=== PATIENT | female | born 1960 | race Caucasian/White ===

== ENCOUNTER 2019-10-25 13:58 | Emergency (ER) | payer BC, SELFPAY ==
[2019-10-25 14:02] VITALS: BP 131/68; PULSE 83; RESP 18; TEMP 36.9; O2SAT 98
[2019-10-25 14:35] LABS: Basophils Percent Auto 0.5 % (0.2-1.2); Eosinophils Absolute Auto 0.1 K/mm3 (0-0.3); Eosinophils Percent Auto 0.8 % (0-4.4); Hematocrit 41.5 % (37.0-47.0); Hemoglobin 14.3 g/dL (12.0-15.0); Immature Granulocyte Absolute 0.03 K/mm3 (0.00-0.031); Immature Granulocyte Percent A 0.3 % (0-0.5); Lymphocytes Absolute Auto 1.38 K/mm3 (0.9-3.2); Lymphocytes Percent Auto 15.7 % (18.3-44.2); Mean Corpuscular HGB Conc 34.5 g/dl (32-36); Mean Corpuscular Hemoglobin 30.6 pg (26-34); Mean Corpuscular Volume 88.7 fl (80-100); Mean Platelet Volume 10.3 fl (7.4-10.4); Monocytes Absolute Auto 0.5 K/mm3 (0.1-0.6); Monocytes Percent Auto 5.9 % (2.6-8.5); Neutrophils Absolute Auto 6.8 K/mm3 (1.3-6.7); Neutrophils Percent Auto 76.8 % (45.5-73.1); Platelet Count Result 143 k/mm3 (150-375); Red Blood Count 4.68 M/mm3 (4.2-5.4); Red Cell Distribution Width 12.2 % (11.5-14.5); White Blood Count 8.8 K/mm3 (4.5-10.0)
[2019-10-25 14:48] LABS: Alanine Aminotransferase 21 U/L (4-35); Albumin Level 4.5 g/dL (3.5-5.1); Alkaline Phosphatase 84 U/L (38-126); Aspartate Amino Transferase 34 U/L (14-36); Bilirubin,Total 0.4 mg/dL (0.2-1.3); Blood Urea Nitrogen 6 mg/dL (7-17); CRP < 0.5 mg/dL (<1.0); Calcium 9.3 mg/dL (8.4-10.2); Carbon Dioxide 26 mmol/L (22-30); Chloride 101 mmol/L (98-107); Estimated CRCL calculation 74 ml/min; Estimated Glomerular Filt Rate > 60; Glucose 131 mg/dL (65-105); Potassium 3.7 mmol/L (3.4-5.0); Sodium 137 mmol/L (137-145)
--- NOTE | 2019-10-25 15:29 | ED.GENADULT ---
HPI - General Adult General Chief complaint: Eye Problems <KAYLIN Anne Last Filed: 10/25/19 17:27> Stated complaint: Sent from urgent care/right eye pain/martin <Lashae Godfrey PA-C - Last Filed: 10/25/19 17:27> Time Seen by Provider: 10/25/19 15:19 <KAYLIN Anne Last Filed: 10/25/19 17:27> Source: patient <KAYLIN Anne Last Filed: 10/25/19 17:27> Mode of arrival: ambulatory <KAYLIN Anne Last Filed: 10/25/19 17:27> Limitations: no limitations <KAYLIN Anne Last Filed: 10/25/19 17:27> History of Present Illness HPI narrative: Sent from urgent care for further evaluation of right eye pain. Pt states that it started approximately 6 days ago, with her eyeball aching on Sat. She has slightly blurred vision in right eye, the sclera is red, no itching or feeling of foreign body. She did have some right zoroastrianism pain earlier in the week, none now. Denies trauma. <KAYLIN Anne Last Filed: 10/25/19 17:27> Onset (ago): day(s) <KAYLIN Anne Last Filed: 10/25/19 17:27> Location: eyes (right) <KAYLIN Anne Last Filed: 10/25/19 17:27> Radiation: non-radiation <KAYLIN Anne Last Filed: 10/25/19 17:27> Severity: mild <KAYLIN Anne Last Filed: 10/25/19 17:27> Quality: aching (right eye) <KAYLIN Anne Last Filed: 10/25/19 17:27> Pain Consistency: constant <KAYLIN Anne Last Filed: 10/25/19 17:27> Exacerbating factors: none <Lashae Godfrey PA-C - Last Filed: 10/25/19 17:27> Associated symptoms: denies other symptoms <Lashae Godfrey PA-C - Last Filed: 10/25/19 17:27> Treatments prior to arrival: none <Lashae Godfrey PA-C - Last Filed: 10/25/19 17:27> Related Data Home medications: Home Medications Medication Instructions Recorded Confirmed alendronate 70 mg tablet tablet PO 06/25/19 apixaban 5 mg tablet 5 mg PO BID tablet 06/25/19 diltiazem HCl 180 mg mg PO 06/25/19 capsule,extended release 24 hr melatonin 10 mg tablet PO 06/25/19 rosuvastatin 20 mg tablet 20 mg PO tablet 06/25/19 zolpidem 10 mg tablet 10 mg PO tablet 06/25/19 <Lashae Godfrey PA-C - Last Filed: 10/25/19 17:27> Allergies/adverse reactions: Allergies Allergy/AdvReac Type Severity Reaction Status Date / Time Penicillins Allergy Severe Anaphylaxis Verified 10/25/19 14:07 clopidogrel Allergy Unknown Hives Verified 10/25/19 14:07 morphine Allergy Unknown Unknown Verified 10/25/19 14:07 <Lashae Godfrey PA-C - Last Filed: 10/25/19 17:27> Review of Systems Review of Systems: All systems reviewed & are unremarkable except as noted in HPI and below <Lashae Godfrey PA-C - Last Filed: 10/25/19 17:27> [facility] Past Medical History Medical History: Medical History Pacemaker 2008 Stroke <Lashae Godfrey PA-C - Last Filed: 10/25/19 17:27> Social History Social History: Social History (Updated 06/25/19 @ 10:19 by Viv Biswas RN) Smoking status: Current every day smoker Tobacco type: cigarettes Alcohol intake: never Gender identity (if verbalized by the patient): Female <Lashae Godfrey PA-C - Last Filed: 10/25/19 17:27> Exam Const: General: no acute distress and alert <KAYLIN Anne Last Filed: 10/25/19 17:27> Orientation/consciousness: patient oriented x3 <KAYLIN Anne Last Filed: 10/25/19 17:27> HENMT: Head: normal to inspection <KAYLIN Anne Last Filed: 10/25/19 17:27> Eyes: General: appearance normal, both eyes and all related structures <KAYLIN Anne Last Filed: 10/25/19 17:27> Visual Nielsen: normal visual inelsen by confrontation <KAYLIN Anne Last Filed: 10/25/19 17:27> Alignment and Position: alignment normal and position normal <TAHMINA Anne
[2019-10-25 17:40] VITALS: BP 129/73; PULSE 74; RESP 16; O2SAT 98
== END 2019-10-25 17:42 | disposition home or self-care (01) ==
PROVIDERS: Emergency Provider General Practice; PCP Emergency Medicine
DX: H40.051 Ocular hypertension, right eye (principal); Z95.0 Presence of cardiac pacemaker; Z86.73 Personal history of transient ischemic attack (TIA), and cerebral infarction without residual deficits; F17.210 Nicotine dependence, cigarettes, uncomplicated
CPT/HCPCS: 36415; 80053; 85025; 86140; 99283

== ENCOUNTER 2019-11-27 10:21 | Outpatient (CLI) | payer BC, SELFPAY ==
--- NOTE | ~2019-11-27 | CT_ITS ---
EXAMINATION:CT lung screening DATE: 11/27/2019 10:58 INDICATION: Personal history of negative dependence. Current smoker with 39 pack year history. TECHNIQUE: Computed tomography (CT) of the chest was performed without intravenous contrast. Automate d exposure control and iterative reconstruction technique were employed. The dose-length product (DLP ) was 63.35 mGy-cm. COMPARISON: Chest CT 11/07/2018 FINDINGS: There is mild emphysema. There is minimal atelectasis bilaterally. A calcified left lung no dule is consistent with old granulomatous disease. No pleural effusion. The heart size is normal. The re are coronary artery calcifications. No pericardial effusion. There is a left chest wall pacer with leads in the right atrium and right ventricle. There is moderate thoracic spondylosis. IMPRESSION: 1. Lung-RADS category 1: Negative. Continue annual screening with noncontrast low-dose chest CT in 12 months. Reviewed, dictated and finalized at location A. IMPRESSION: 1. Lung-RADS category 1: Negative. Continue annual screening with noncontrast l ow-dose chest CT in 12 months.
== END 2019-11-27 10:22 | disposition home or self-care (01) ==
PROVIDERS: PCP Emergency Medicine; Visit Provider Emergency Medicine
DX: Z12.2 Encounter for screening for malignant neoplasm of respiratory organs (principal); Z87.891 Personal history of nicotine dependence
CPT/HCPCS: G0297

== ENCOUNTER 2020-11-02 15:05 | Outpatient (CLI) | payer BC, SELFPAY ==
--- NOTE | ~2020-11-02 | CT_ITS ---
EXAMINATION:CT lung screening DATE: 11/02/2020 15:26 INDICATION: Personal history of tobacco dependence. Current smoker with 39 pack year history. TECHNIQUE: Computed tomography (CT) of the chest was performed without intravenous contrast. Automate d exposure control and iterative reconstruction technique were employed. The dose-length product (DLP ) was 64.11 mGy-cm. COMPARISON: Chest CT 11/27/2019 FINDINGS: There is mild emphysema. There is minimal atelectasis bilaterally. There is stable mild sca rring at left lung apex. No pleural effusion. The heart size is normal. There are coronary artery marquis cifications. No pericardial effusion. There is a left chest wall pacer with leads in the right atrium and right ventricle. There is moderate thoracic spondylosis. IMPRESSION: 1. Lung-RADS category 2: Benign appearance or behavior. Continue annual screening with noncontrast lo w-dose chest CT in 12 months. Reviewed, dictated and finalized at location B. IMPRESSION: 1. Lung-RADS category 2: Benign appearance or behavior. Continue annual screeni ng with noncontrast low-dose chest CT in 12 months.
== END 2020-11-02 15:06 | disposition home or self-care (01) ==
PROVIDERS: PCP Emergency Medicine; Visit Provider Emergency Medicine
DX: Z12.2 Encounter for screening for malignant neoplasm of respiratory organs (principal); Z87.891 Personal history of nicotine dependence
CPT/HCPCS: 71271

== ENCOUNTER → 2020-11-19 04:05 | Outpatient (CLI) | payer BC, SELFPAY ==
[2020-11-19 19:46] LABS: SARS-CoV-2 RNA PCR Negative
== END ==
PROVIDERS: PCP Emergency Medicine; Visit Provider Internal Medicine Gastroenterology
DX: Z01.812 Encounter for preprocedural laboratory examination (principal); Z20.822 Contact with and (suspected) exposure to COVID-19
CPT/HCPCS: C9803; U0003; U0005

== ENCOUNTER 2020-11-23 01:10 | Day surgery (SDC) | payer BC, SELFPAY ==
[2020-11-14 14:17] VITALS: BMI 21.7
[2020-11-23 11:09] VITALS: BP 123/65; PULSE 77; RESP 18; TEMP 36.3; O2SAT 100
[2020-11-23] MEDS: LACTATED RINGERS 1,000 ML 150 ML IV CONT (11:28)
--- NOTE | 2020-11-23 11:47 | WPDANESEPPF ---
Anes - Initial Pre Proc Eval Procedure: Operation Date: 11/23/20 12:15 Proposed Procedures p Esophagogastroduodenoscopy & Colonoscopy - Diaz Dougherty MD Date/Time: 11/23/20 11:47 Surgeon: Diaz Dougherty MD Pre Op Diagnosis: weight loss, nausea, vomiting Patient Data Age: 59 Gender: F Height: 5 ft 2 in Weight: 54.4 kg Last Vital Signs Temp 97.4 F L 11/23/20 11:09 Pulse 77 11/23/20 11:09 Resp 18 11/23/20 11:09 BP 123/65 11/23/20 11:09 Pulse Ox 100 11/23/20 11:09 Allergies Allergy/AdvReac Type Severity Reaction Status Date / Time Penicillins Allergy Severe Anaphylaxis Verified 11/23/20 11:07 clopidogrel Allergy Unknown Hives Verified 11/23/20 11:07 morphine Allergy Unknown Unknown Verified 11/23/20 11:07 Home Medications Medication Instructions Recorded Confirmed Type alendronate 70 mg tablet 70 mg PO DAILY 06/25/19 11/14/20 History apixaban 5 mg tablet 5 mg PO BID tablet 06/25/19 11/14/20 History diltiazem HCl 180 mg 180 mg PO DAILY 06/25/19 11/14/20 History capsule,extended release 24 hr melatonin 10 mg tablet 10 mg PO DAILY 06/25/19 11/14/20 History zolpidem 10 mg tablet 10 mg PO DAILY tablet 06/25/19 11/14/20 History Patient hx anesthesia problems: none Family hx anesthesia problems: none PMFSH Past Medical History Medical History (Updated 08/25/20 @ 14:55 by Viv Biswas RN) Pacemaker 2008 Stroke Social History Social History Smoking packs per day: 1 Smoking cigarettes per day: 20.0 Years smoked: 40 Smoking pack-years: 40.00 Smoking status: Current every day smoker Tobacco type: cigarettes Alcohol intake: former Substance use: never Substance use type: does not use Living arrangements: with family Gender identity (if verbalized by the patient): Female Spiritual care concerns: No Anes - Eval Final PreProcedure Day of Procedure 11/23/20 11:47 Patient weight: normal Heart: regular rate and rhythm Lungs: clear to auscultation Airway: Mallampati scale class II Neurological: alert and oriented Last oral intake: >/= 8 hours ASA classification: III Emergent: no Anesthetic plan: proceed Anesthesia type and monitoring: general GIVS and standard monitoring Informed Consent: The patient's anesthetic plan and its attendant risks and benefits were discussed with the patient/family/POA. Questions were solicited and answers provided to the satisfaction of the patient/family/POA.
--- NOTE | 2020-11-23 11:54 | PM.HPGS ---
History of Present Illness History of Present Illness Consent: Risks, benefits, and alternatives have been discussed and questions answered. Patient agrees to proceed with procedure. Chief complaint: weight loss, nausea, vomiting Narrative: Melinda Anthony is a 59 year old female with intermittent nausea, vomiting for 1 year, also loose stools and noted weight loss. Last colonoscopy about 7 years ago. Review of Systems Constitutional: Constitutional: Denies headache(s) and Denies weakness Eyes: Eyes: Denies blurry vision ENT: Reports Normal hearing present, Denies headache(s) and Denies neck pain Cardiovascular: Cardiovascular: Denies chest pain and Denies dyspnea Respiratory: Respiratory: Denies dyspnea Gastrointestinal: Gastrointestinal: Reports no additional gastrointestinal complaints Genitourinary: Genitourinary: Denies dysuria Musculoskeletal: Musculoskeletal: Denies neck pain Integumentary/Breasts: Skin/Breast: Denies dry skin Neurologic: Reports Normal hearing present, Denies headache(s) and Denies weakness Psychiatric: Psychiatric: Denies anxiety Endocrine: Endocrine: Denies change in body appearance Hematologic/Lymphatic: Hematologic/Lymphatic: Denies easy bleeding Allergic/Immunologic: Allergic/Immunologic: Denies urticaria PMFSH Past Medical History Medical History (Updated 11/23/20 @ 11:55 by Diaz Dougherty MD) Nausea and vomiting in adult Pacemaker 2008 Stroke Weight loss Social History Social History Smoking packs per day: 1 Smoking cigarettes per day: 20.0 Years smoked: 40 Smoking pack-years: 40.00 Smoking status: Current every day smoker Tobacco type: cigarettes Alcohol intake: former Substance use: never Substance use type: does not use Living arrangements: with family Gender identity (if verbalized by the patient): Female Spiritual care concerns: No Meds Home Medications and Allergies Home Medications Medication Instructions Recorded Confirmed Type alendronate 70 mg tablet 70 mg PO DAILY 06/25/19 11/14/20 History apixaban 5 mg tablet 5 mg PO BID tablet 06/25/19 11/14/20 History diltiazem HCl 180 mg 180 mg PO DAILY 06/25/19 11/14/20 History capsule,extended release 24 hr melatonin 10 mg tablet 10 mg PO DAILY 06/25/19 11/14/20 History zolpidem 10 mg tablet 10 mg PO DAILY tablet 06/25/19 11/14/20 History Allergies Allergy/AdvReac Type Severity Reaction Status Date / Time Penicillins Allergy Severe Anaphylaxis Verified 11/23/20 11:07 clopidogrel Allergy Unknown Hives Verified 11/23/20 11:07 morphine Allergy Unknown Unknown Verified 11/23/20 11:07 Vital Signs Vital Signs - 24 hr 11/23/20 11:09 Temperature 97.4 F L Pulse Rate 77 Respiratory Rate 18 Blood Pressure 123/65 Pulse Oximetry 100 Exam Const: General: comfortable and no acute distress HENMT: General nose exam: Normal nares present Eyes: General: appearance normal, both eyes and all related structures Neck: Neck: no JVD Resp: Auscultation: clear to auscultation bilaterally Cardio: Rate: regular rate Rhythm: regular rhythm GI: Inspection: non-distended GI Palp: Yes Soft to palpation Skin: General skin exam: normal color Neuro: General: gait normal Speech: normal speech Extrem: General: normal to inspection Psych: Mental Status: mental status grossly normal Assessment and Plan Assessment and plan (1) Nausea and vomiting in adult: Code(s): R11.2 - Nausea with vomiting, unspecified Status: Acute Assessment and Plan: egd with bx (2) Weight loss: Code(s): R63.4 - Abnormal weight loss Status: Acute Assessment and Plan: colonoscopy
[2020-11-23 12:26] VITALS: BP 99/59; PULSE 71; RESP 22; O2SAT 99
[2020-11-23 12:36] VITALS: BP 113/67; PULSE 70; RESP 16; O2SAT 100
[2020-11-23 12:46] VITALS: BP 121/69; PULSE 70; RESP 18; O2SAT 100
== END 2020-11-23 13:06 | disposition home or self-care (01) ==
PROVIDERS: PCP Emergency Medicine; Visit Provider Internal Medicine Gastroenterology
PROC: 0DJ08ZZ Inspection of Upper Intestinal Tract, Via Natural or Artificial Opening Endoscopic (ICD-10-PCS; CPT 43235; principal; 2020-11-23 12:15)
DX: R19.7 Diarrhea, unspecified (principal); R63.4 Abnormal weight loss; K57.30 Diverticulosis of large intestine without perforation or abscess without bleeding; K64.8 Other hemorrhoids; R11.2 Nausea with vomiting, unspecified; K29.50 Unspecified chronic gastritis without bleeding; Z95.0 Presence of cardiac pacemaker; Z86.73 Personal history of transient ischemic attack (TIA), and cerebral infarction without residual deficits; F17.210 Nicotine dependence, cigarettes, uncomplicated; Z79.01 Long term (current) use of anticoagulants
CPT/HCPCS: 45380; 43239; 88305; J2704; J7120

== ENCOUNTER → 2021-10-12 10:13 | Outpatient (CLI) | payer BC, SELFPAY ==
--- NOTE | ~2021-10-12 | XR_ITS ---
EXAMINATION:XR_[id number]_CR, XR lumbar spine 2-3V, XR thoracic spine 3V DATE: 10/12/2021 10:45 INDICATION: Neck and back pain TECHNIQUE: 1. AP, lateral, lateral swimmers and odontoid views of the cervical spine are provided. 2. AP, lateral and lateral swimmer's views of the thoracic spine were obtained. 3. AP, lateral and coned-down lateral lumbosacral views of the lumbar spine were obtained. COMPARISON: None FINDINGS: Cervical spine Straightening of the cervical spine with slight dextrocurvature. Odontoid is intact. Normal atlantoa xial interval. Vertebral body heights are normal. Moderate disc height loss at C5-C6 and mild disc he ight loss at C3-C4 and C6-C7. Multilevel moderate bilateral uncovertebral osteoarthritis in the mid t o lower cervical spine. Small posterior endplate osteophytes resulting in mild central canal stenosis at C3-C4 and C5-6. There is also mild to moderate bilateral cervical facet osteoarthritis. Preverte bral soft tissues are normal. Thoracic spine: 10 degrees mid thoracic levocurvature. Sagittal alignment is normal. Thoracic vertebral body heights are normal. Multilevel moderate disc height loss throughout the mid thoracic spine with mild disc hei ght loss at both cephalad and caudal lumbar levels. Lungs are clear with no evidence pleural effusion or pneumothorax. There is a large portion of the cardiomediastinal silhouette is normal. Dual lead p acemaker seen with leads projecting over the expected locations of the right atrium and right ventric le. Lumbar spine: 7 degree lumbar levocurvature. 3 mm left lateral listhesis of L3 on L4. Sagittal alignment is normal. Vertebral body heights are normal. Mild disc height loss at L2-L3 and mild to moderate disc height l oss at L3-L4. Multilevel mild lumbar facet osteoarthritis. There is also mild bilateral sacroiliac os teoarthritis. Atherosclerotic abdominal aorta. There are a few small phleboliths in the pelvis. IMPRESSION: 1. And mild to moderate spondylosis throughout the cervical, thoracic and lumbar spine. Reviewed, dictated and finalized at location A. IMPRESSION: 1. And mild to moderate spondylosis throughout the cervical, thoracic and lumba r spine. IMPRESSION: 1. And mild to moderate spondylosis throughout the cervical, thoracic and lumba r spine.
== END ==
PROVIDERS: PCP Emergency Medicine; Visit Provider Emergency Medicine
DX: M54.2 Cervicalgia (principal); M54.50 Low back pain, unspecified; M47.816 Spondylosis without myelopathy or radiculopathy, lumbar region; M47.812 Spondylosis without myelopathy or radiculopathy, cervical region; M47.814 Spondylosis without myelopathy or radiculopathy, thoracic region
CPT/HCPCS: 72040; 72072; 72100

== ENCOUNTER → 2021-11-07 09:25 | Outpatient (CLI) | payer BC, SELFPAY ==
--- NOTE | ~2021-11-07 | CT_ITS ---
EXAMINATION: CT lung screening DATE: 11/07/2021 09:42 INDICATION: Personal history of tobacco dependence TECHNIQUE: Computed tomography (CT) of the chest was performed without intravenous contrast. The dose -length product was 49.68 mGy-cm. Automated exposure control and iterative reconstruction technique were employed. COMPARISON: CT dated 11/02/2020 FINDINGS: There is atherosclerosis of the aorta and coronary arteries. Pacemaker leads are present. H eart size normal. No significant pleural or pericardial effusion. There is an accessory splenule in t he left upper abdomen. No thoracic lymphadenopathy. Stable apical pleural thickening/scarring. Small nodule in the left upper lobe measuring 2 mm, too small to characterize for calcification. There is e mphysema. No endobronchial lesions. No pneumothorax. Moderate thoracic spondylosis. IMPRESSION: 1. Lung-RADS category 2: Benign appearance or behavior. Continue annual screening with noncontrast lo w-dose chest CT in 12 months. Reviewed, dictated and finalized at location A. IMPRESSION: 1. Lung-RADS category 2: Benign appearance or behavior. Continue annual screeni ng with noncontrast low-dose chest CT in 12 months.
== END ==
PROVIDERS: PCP Emergency Medicine; Visit Provider Emergency Medicine
DX: Z12.2 Encounter for screening for malignant neoplasm of respiratory organs (principal); Z87.891 Personal history of nicotine dependence
CPT/HCPCS: 71271

== ENCOUNTER → 2021-11-27 14:51 | Outpatient (REF) | payer BC, SELFPAY | LOC: ANHLAB 14:51 | PROVIDERS: PCP Emergency Medicine; Visit Provider Nurse Practitioner | DX: D49.2 Neoplasm of unspecified behavior of bone, soft tissue, and skin (principal) | CPT/HCPCS: 88305 ==

== ENCOUNTER → 2022-01-03 10:18 | Outpatient (CLI) | payer BC, SELFPAY ==
--- NOTE | ~2022-01-03 | MM_ITS ---
EXAMINATION: MM screening [facility] BI w allen HISTORY: Screening mammogram TECHNIQUE: Craniocaudal and mediolateral oblique 3-D tomosynthesis images were obtained and synthetic 2-D images were generated. CAD analysis was submitted and interpreted. COMPARISON: 04/11/2018, 04/09/2016, 01/10/2015 BREAST PARENCHYMAL COMPOSITION: There are scattered areas of fibroglandular density. FINDINGS: There is no suspicious mass, calcification, or architectural distortion to suggest malignan cy in either breast. There has been no suspicious interval change. IMPRESSION: 1. No mammographic evidence of malignancy. 2. Recommend routine screening mammography in one year. BI-RADS Category 1: Negative Reviewed, dictated and finalized at location A.
== END ==
PROVIDERS: PCP Emergency Medicine; Visit Provider Emergency Medicine
DX: Z12.31 Encounter for screening mammogram for malignant neoplasm of breast (principal)
CPT/HCPCS: 77063; 77067

== ENCOUNTER 2022-08-06 09:51 | Outpatient (CLI) | payer BC, SELFPAY ==
--- NOTE | ~2022-08-06 | DEXA_ITS ---
Bone Density Report Name: RAJI MONTERROSO Age: 61 Sex: Female Ethnicity: White Date of : 1960 Indication: postmenopausal; screening for osteoporosis; height loss; Referring Provider: VALENCIA WHARTON Study: Bone densitometry was performed. Exam Date: August 06, 2022 Accession number: [id number] Bone Density: Region BMD T-score Z-score Classification AP Spine(L1-L4) 0.837 -1.9 -0.5 Osteopenia Femoral Neck (Left) 0.538 -2.8 -1.5 Osteoporosis Total Hip (Left) 0.653 -2.4 -1.4 Osteopenia Femoral Neck (Right) 0.535 -2.8 -1.6 Osteoporosis Total Hip (Right) 0.653 -2.4 -1.4 Osteopenia Total Hip Mean 0.653 -2.4 -1.4 Osteopenia World Health Organization criteria for BMD impression classify patients as: Normal (T-score at or above -1.0), Osteopenia (T-score between -1.0 and -2.5), or Osteoporosis (T-score at or below -2.5). 10-year Fracture Risk: FRAX not reported because: Some T-score for Spine Total or Hip Total or Femoral Neck at or below -2.5 Treated for osteoporosis Clinical Information Provided by Patient: Smokes Is being treated for osteoporosis Has used the following medications: Vitamin D, Calcium Patient maximum height was 63 Menopause Age: 44 Drinks caffeinated beverages Onset of menses at age 15 Number of children 2 Impression: The patient has osteoporosis, based on the Left Femoral Neck T-score. The patient has risk factors, including: smoking. Discussion: It is important to ask patients whether they are taking their medications and to encourage continued and appropriate compliance with their osteoporosis therapies to reduce fracture risk. It is also important to review their risk factors and encourage appropriate calcium and vitamin D intakes, exercise, fall prevention and other lifestyle measures. Follow-Up: Consider a repeat BMD and Vertebral Fracture Assessment (VFA) exam in 2 years or sooner if medically necessary, to reassess this patient's status. Reported by: STEPHEN on 08/06/2022 10:21:00 AM. Reviewed, dictated and finalized at location A. JM
== END 2022-08-06 09:52 | disposition home or self-care (01) ==
LOC: ANHIMG 09:52
PROVIDERS: PCP Emergency Medicine; Visit Provider Emergency Medicine
DX: M81.0 Age-related osteoporosis without current pathological fracture (principal); M85.88 Other specified disorders of bone density and structure, other site; M85.852 Other specified disorders of bone density and structure, left thigh; M85.851 Other specified disorders of bone density and structure, right thigh
CPT/HCPCS: 77080

== ENCOUNTER 2023-07-04 11:37 | Outpatient (CLI) | payer BC, SELFPAY ==
--- NOTE | ~2023-07-04 | XR_ITS ---
XR chest 2V DATE: 07/04/2023 11:55 INDICATION: Shortness of breath TECHNIQUE: PA and lateral views COMPARISON: 11/07/2021 CT lung screening FINDINGS: Left dual-lead pacemaker with leads overlying right atrium and right ventricle. Normal hear t size. Aortic arch calcification. No hilar or mediastinal enlargement. Bilateral hyperinflation. No pulmonary infiltrate or consolidation, pleural effusion or pulmonary vascular congestion or pneumo thorax is detected. Osteopenia. IMPRESSION: Bilateral hyperinflation; no active cardiopulmonary disease Left dual-lead pacemaker Reviewed, dictated and finalized at location L. 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
== END 2023-07-04 11:38 | disposition home or self-care (01) ==
PROVIDERS: PCP Emergency Medicine; Visit Provider Internal Medicine Cardiovascular Disease
DX: I50.32 Chronic diastolic (congestive) heart failure (principal); R06.02 Shortness of breath; I44.2 Atrioventricular block, complete; E61.1 Iron deficiency; I65.23 Occlusion and stenosis of bilateral carotid arteries; G47.00 Insomnia, unspecified; Z51.81 Encounter for therapeutic drug level monitoring; Z79.01 Long term (current) use of anticoagulants; E78.2 Mixed hyperlipidemia; Z95.0 Presence of cardiac pacemaker; R53.83 Other fatigue; D68.9 Coagulation defect, unspecified; I48.91 Unspecified atrial fibrillation; R07.89 Other chest pain
CPT/HCPCS: 71046

== ENCOUNTER 2024-01-01 09:58 | Outpatient (CLI) | payer BC, SELFPAY ==
--- NOTE | ~2024-01-01 | CT_ITS ---
CT Scan of the Chest without Contrast: Clinical Indication: Lung cancer screening, nicotine dependence Technique: Contiguous sections were acquired throughout the chest without intravenous contrast. Dose reduction technique was used on this scan by utilizing automated exposure control and iterative recon struction technique. The dose-length product (DLP) was 64.65 mGy-cm. COMPARISON: 11/07/2021 Findings: There is no evidence of any significant mediastinal, hilar or axillary lymphadenopathy. The mediastin al soft tissues appear normal. There is no evidence of pleural or pericardial effusion. The lungs are clear. No pulmonary nodules or infiltrates are noted. Images through the upper abdomen reveal no abnormalities. Impression: Lung RADS 1: Negative. 12 month follow-up screening CT advised. Reviewed, dictated and finalized at location . Impression: Lung RADS 1: Negative. 12 month follow-up screening CT advised.
== END 2024-01-01 09:59 | disposition home or self-care (01) ==
LOC: ANHIMG 10:02
PROVIDERS: PCP Emergency Medicine; Visit Provider Emergency Medicine
DX: Z12.2 Encounter for screening for malignant neoplasm of respiratory organs (principal); Z87.891 Personal history of nicotine dependence
CPT/HCPCS: 71271

== ENCOUNTER 2024-02-12 09:19 | Outpatient (CLI) | payer BC, SELFPAY ==
--- NOTE | ~2024-02-12 | CT_ITS ---
CT lumbar spine wo con Ordering provider: Cecil Rodríguez MD History: 63 years Female with . spondylosis, lumbar region . Comparison: None. Technique: CT lumbar spine without contrast. Automated exposure control and iterative reconstruction technique were employed. The dose-length product was 295.65 mGy-cm. FINDINGS: VERTEBRAE: Normal height and alignment. No subluxation or visible acute fracture. DISC SPACES: Well maintained. Facet joint disease at the level of L2-L3, L3-L4 and L4-L5. T12-L1: No stenosis. L1-L2: No stenosis. Diffuse disc bulge. L2-L3: No stenosis. Diffuse disc bulge with bilateral narrowing of the foramina. . L3-L4: No stenosis. Diffuse disc bulge. L4-L5: No stenosis. Mild diffuse disc bulge. L5-S1: No stenosis. PARASPINOUS SOFT TISSUES: Mild atheromatous disease of the abdominal aorta. IMPRESSION: No acute osseous abnormalities. Multilevel diffuse disc bulges with no definite nerve root compression. Reviewed, dictated and finalized at location A.
== END 2024-02-12 09:20 ==
LOC: GOSHIMG 09:21
PROVIDERS: PCP Emergency Medicine; Visit Provider Emergency Medicine
DX: M47.896 Other spondylosis, lumbar region (principal); M51.26 Other intervertebral disc displacement, lumbar region
CPT/HCPCS: 72131

== ENCOUNTER 2024-05-12 08:27 | Outpatient (CLI) | payer BC, SELFPAY ==
--- NOTE | ~2024-05-12 | MM_ITS ---
EXAMINATION: MM screening [facility] BI w allen HISTORY: Screening mammogram TECHNIQUE: Craniocaudal and mediolateral oblique 3-D tomosynthesis images were obtained and synthetic 2-D images were generated. CAD analysis was submitted and interpreted. COMPARISON: 01/03/2022 BREAST PARENCHYMAL COMPOSITION:Not Dense. There are scattered areas of fibroglandular density. FINDINGS: No suspicious mass, calcification, or architectural distortion are identified in either catalina ast to suggest malignancy. There has been no suspicious interval change. IMPRESSION: No mammographic evidence of malignancy. Recommend routine screening mammography in one year. BI-RADS Category 1: Negative Reviewed, dictated and finalized at location . 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
== END 2024-05-12 08:28 | disposition home or self-care (01) ==
LOC: ANHIMG 08:31
PROVIDERS: PCP Emergency Medicine; Visit Provider Emergency Medicine
DX: Z12.31 Encounter for screening mammogram for malignant neoplasm of breast (principal)
CPT/HCPCS: 77063; 77067

== ENCOUNTER 2025-01-01 10:05 | Outpatient (CLI) | payer BC, SELFPAY ==
--- NOTE | ~2025-01-01 | CT_ITS ---
CT Scan of the Chest without Contrast: Clinical Indication: Lung cancer screening, nicotine dependence Technique: Contiguous sections were acquired throughout the chest without intravenous contrast. Dose reduction technique was used on this scan by utilizing automated exposure control and iterative recon struction technique. The dose-length product (DLP) was 60.68 mGy-cm. COMPARISON: 01/01/2024 Findings: There is no evidence of any significant mediastinal, hilar or axillary lymphadenopathy. Coronary talha ry calcifications are present. There is no evidence of pleural or pericardial effusion. The lungs are clear. No pulmonary nodules or infiltrates are noted. Mild emphysema present. Images through the upper abdomen reveal no abnormalities. Impression: Lung RADS 1: Negative. 12 month follow-up screening CT advised. Reviewed, dictated and finalized at location . Impression: Lung RADS 1: Negative. 12 month follow-up screening CT advised.
--- OUTSIDE RECORDS SUMMARY | 2025-01-01 10:14 | XMS_ITS | Clinical Summary ---
Author Organization [facility] Address [address] [place] [id number] Care Team Providers Care Chief Compressor Station Engineer Name Role Phone Cecil Rodríguez MD Primary Care Provider [phone] Allergies Active Allergy Reactions Criticality Noted Date Comments Clopidogrel Codeine Fluticasone Propion-Salmeterol Hives,Other (See comments) Medium 10/24/2010 Reaction: Penicillin G Rash Reaction: rash, Ranolazine Other (See comments) Low 06/10/2007 Reaction: Medications apixaban (ELIQUIS) 5 mg tabletIndicatio ns:Venous Thrombosis Take 1 tablet (5 mg total) by mouth 2 (two) times a day Active rosuvastatin (CRESTOR) 40 mg tabletIndicatio ns:hyperlipidem ia Take 1 tablet (40 mg total) by mouth daily Active multivitamin capsuleIndicati ons:Vitamin Deficiency Prevention Take 1 capsule by mouth daily Active zolpidem (AMBIEN) 10 mg tabletIndicatio ns:Sleep-Onset Insomnia Take 1 tablet (10 mg total) by mouth nightly as needed for sleep Active valACYclovir (VALTREX) 500 mg tablet Take 2 tablets (1,000 mg total) by mouth daily 90 tablet 5 0 Active ergocalciferol (VITAMIN D) 50,000 unit capsule take one capsule orally once every other week 2 Active nitroglycerin (NITROSTAT) 0.4 mg SL tablet Apply topically as needed 3 Active gabapentin (NEURONTIN) 300 mg capsule Take 1 capsule (300 mg total) by mouth 2 (two) times a day 4 Active HYDROcodone-kalpesh taminophen (NORCO) 7.5-325 mg per tablet TAKE 1 TABLET BY MOUTH TWICE DAILY NEEDED FOR PAIN. AVOID DRIVING OR OPERATE MACHINES 4 Active Active Problems Problem Noted Date Diagnosed Date Age-related nuclear cataract of both eyes 2019 Assessment & Plan (11/05/2019 10:23 AM CDT): NVS Assessment & Plan (10/28/2019 11:14 AM CDT): NVA, CTM, may be at risk of faster progression OD given topical steroids Hx of LASIK 10/28/2019 Assessment & Plan (10/28/2019 11:14 AM CDT): h/o LASIK OU, some SPEE OU, doing well, CTM Acute anterior uveitis of right eye 10/25/2019 Overview (11/13/2019): PPD negative, RPR negative, HIV negative, KALPESH normal, WBC 13.3 but otherwise normal CBC/BMP. Did not get IGRA due to cost. Assessment & Plan (01/27/2020 10:50 AM CDT): Initial flare 10/25/2019. Since then had resolved. Today, eye has remained red off of all drops. 1-2 cells in the AC with 3-4 fine KP today. Previously suspected herpetic etiology. - restart PF once daily OU - recommend FTA-ABS and HLA-B27 if does not improve with mild steroid dosing - off of prophylactic valtrex - IOP wnl today, MRx dispensed - RTC 6-8 weeks and assess response to PF Assessment & Plan (2019 9:40 AM CDT): Initial flare 10/25/2019, remains fully resolved. Patient decreased durezol to Qdaily at last visit. Suspect herpetic. Remains quiet OU today Recommend FTA-ABS and HLA-B27 if flare-up recurs during taper. -Continue prophylactic valtrex at 1g qday -Decrease durezol to every other day x3 weeks, then stop. RTC in 1 month to re-examine off of drops. -okay to discontinue cyclopentolate RTC 1 month for AC/IOP check off of steroids Assessment & Plan (12/02/2019 9:42 AM CDT): Now 6 weeks status post (s/p) initial flare, Appears fully resolved. Patient reports using BID durezol. Suspect herpetic Recommend FTA-ABS and HLA-B27 if flare-up recurs during taper. -Continue prophylactic valtrex at 1g qday -Decrease durezol to Qdaily until follow-up. -Recommend slow taper thereafter RTC ~3 weeks AC/IOP check Assessment & Plan (11/13/2019 10:57 AM CDT): Now 3 weeks status post (s/p) initial flare, finally fully resolved with q2h durezol (including resolution of all KP). Just finished full course of valtrex yesterday. Most likely still herpetic. Recommend FTA-ABS and HLA-B27 if flare-up recurs during taper. -Continue prophylactic valtrex at 1g qday -Decrease durezol to QID OD x 1 week then TID until next seen -Recommend slow taper thereafter (perhaps BID and qday x 2 weeks each) RTC ~2 weeks AC/IOP check Assessment & Plan (11/05/2019 10:28 AM CDT): Patient evaluated on 10/24 after-hours in [facility] after presenting to OSH with pain, redness, and vision changes OD with IOP 30s. Denies any history of eye pain/inflammation. No rheumatologic history or other recent systemic symptoms. No known infectious history. KP appearing more stellate and clumped than granulomatous at this time. Improving in size and number. Appear to be making headway with durezol. PPD negative, RPR negative, HIV negative, KALPESH normal, WBC 13.3 but otherwise normal CBC/BMP. Did not get IGRA due to cost. Now herpetic seems to be most likely culprit. Given improvement, will hold off on further workup. Can consider FTA in the future to confirm no prior syphilis infection. PLAN: - Continue Durezol q2h WA - Cyclo BID OD PRN - Complete Valtrex 1g TID x10 days - Return precautions discussed at length - Plan for repeat exam in [facility] on 11/12 AM Assessment & Plan (11/02/2019 11:07 AM CDT): Patient evaluated on 10/24 after-hours in [facility] after presenting to OSH with pain, redness, and vision changes OD with IOP 30s. Denies any history of eye pain/inflammation. No rheumatologic history or other recent systemic symptoms. No known infectious history. - Exam most notable for focal/sectoral inferior KP, either granulomatous or clumped in appearance, otherwise without signs of intermediate or posterior uveitis/endophthalmitis - Cell/KP remains stable today, not significantly improved on PF q2h WA. Vision remains stable. Pain improved. - Broad DDx at present, possibly herpetic given high IOP although granulomatous KP would be unusual. - Trabeculitis improving, IOP great under IOP drops - No other systemic symptoms RPR negative, HIV negative, KALPESH normal, WBC 13.3 but otherwise normal CBC/BMP. Did not get IGRA due to cost. PLAN: - Switch to Durezol q2h WA, otherwise increase PF to q1h WA depending if she can afford Durezol - Cyclo BID OD PRN - Complete Valtrex 1g TID x10 days - PPD placed today on RIGHT forearm - needs reading before 1055am - If no improvement at next visit, would recommend rheum workup (EDILSON, RF, CCP), perhaps broadening infectious workup (Lyme?) - Return precautions discussed at length - Plan for repeat exam in [facility] on 11/04 AM Assessment & Plan (10/28/2019 11:13 AM CDT): Patient evaluated on 10/24 after-hours in [facility] after presenting to OSH with pain, redness, and vision changes OD with IOP 30s. Denies any history of eye pain/inflammation. No rheumatologic history or other recent systemic symptoms. No known infectious history. - Initial exam most notable for inferior KP (partially granulomatous) with 2+ cell; otherwise without signs of intermediate or posterior uveitis/endophthalmitis - Broad DDx at present, possibly herpetic given high IOP although granulomatous KP would be unusual. Unlikely lens-related given bilaterality of mild central lens bowing. 10/27: pt's KP appear stable and AC reaction appears somewhat improved. No e/o vitreitis. Vision stable and good at 20/30 OD PLAN: continue present management - PF Q2H OD - Cyclo BID OD PRN - Cos BID OD - Valtrex 1g TID x10 days (denies h/o renal disease) - Conservative initial workup given first uveitis episode: RPR, FTA-ABS, IGRA, KALPESH, HIV, CBC, CMP -- pt got labs drawn at [facility] outside lab, will work on getting us the results faxed to us - Return precautions discussed at length - Plan for repeat exam in [facility] on 11/01 Assessment & Plan (10/25/2019 7:53 PM CDT): Patient evaluated after-hours in [facility] after presenting to OSH with pain, redness, and vision changes OD with IOP 30s. Denies any history of eye pain/inflammation. No rheumatologic history or other recent systemic symptoms. No known infectious history. - Reassured by relatively intact vision - IOP to high 20s in [facility], down with Cosopt x2 - Exam most notable for inferior KP (partially granulomatous) with 2+ cell; otherwise without signs of intermediate or posterior uveitis/endophthalmitis - Broad DDx at present, possibly herpetic given high IOP although granulomatous KP would be unusual. Unlikely lens-related given bilaterality of mild central lens bowing. PLAN: - PF Q2H OD - Cyclo TID OD - Cos BID OD - Valtrex 1g TID x10 days (denies h/o renal disease) - Conservative initial workup given first uveitis episode: RPR, FTA-ABS, IGRA, KALPESH, HIV, CBC, CMP - Return precautions discussed at length - Plan for repeat exam in [facility] on 10/26 or 10/27 Osteoporosis 11/07/2013 Overview (09/28/2016): OSTEOPOROSIS NOS Assessment & Plan (11/04/2023 2:21 PM CDT): Chronic problem. Never rec'd Reclast infusion last year. States that she never rec'd phone call. Reclast ordered. Msg to Aracelis DÍAZ to get Reclast infusion set up. [facility] contact info given to Mrs Anthony. Aware to call us if no call rec'd re: infusion. Labs ordered. Will update labs today. Does not mychart. Verified phone #/address to contact re: results. Aware to call if she does not receive call/letter as I didn't receive results (having done at [facility]). No DEXA in chart but she believes she's had in past 12 mos. Will sign release to get copy of report. Assessment & Plan (11/05/2022 11:11 AM CDT): Osteoporosis , chronic, uncontrolled, worsening Risk factors: chronic, active smoking, age, post menopausal, chronic PPI and narcotics Will start IV bisphosphonate therapy ( Reclast yearly infusion ) Will schedule at [facility] today - Fall precautions - recommend muscle stretching and strengthening exercises - keep taking vitamin D supplements - make sure atleast 3 servings of calcium intake in diet - cut to see if you can cut back on acid pills and narcotics - try to cut back and quit smoking - consider out patient physical therapy for your lower back and hip And also recommend pain management for her lower back Hypertension 06/09/2012 Overview (09/26/2016): Hypertension Hyperlipidemia 06/09/2012 Overview (09/26/2016): Hyperlipidemia History of heart disorder 06/09/2012 Overview (09/26/2016): History of heart disease Anemia 06/09/2012 Overview (09/29/2016): Anemia Immunizations Immunization Administration Dates Next Due Influenza, Quadrivalent, Spl it, Preservative Free, Intramuscular 04/01/2014 Influenza, Trivalent, IM (MDV) 04/24/2012 Surgical History Surgery Date Site/Laterality Comments HYSTERECTOMY Hysterectomy LASIK 06/24/2009 - 06/23/2010 Bilateral Medical History Medical History Date Comments Hx Other Medical stroke and left hemiparesis Hx Other Medical sick sinus synd [place] s/p PM Hyperlipidemia Hyperlipidemia Hypertension Hypertension Cerebrovascular accident (CVA) (HCC) Cerebrovascular accident Hx Other Medical sick sinus synd [place] s/p pacer Hx Other Medical A-fib s/p ablat ion Family History Medical History Relation Name Comments Arthritis Mother 2 arthritis; Relation Name Status Comments Mother 1 Alive Mother 2 Social History Tobacco Use Types Packs/Day Years Used Date Smoking Tobacco: Every Day Cigarettes 0.5 40 Alcohol Use Standard Drinks/Week Comments No 0 (1 standard drink = 0.6 oz pur e alcohol) Comments Unknown Sex and Gender Information Value Date Recorded Sex Assigned at Not on file Legal Sex 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 Gender Identity Not on file Sexual Orientation Not on file Obstetrics History Last Filed Vital Signs Vital Sign Reading Time Taken Comments Blood Pressure 118/80 11/04/2023 1:19 PM CDT Pulse 80 11/04/2023 1:19 PM CDT Temperature 36.7 C (98.1 F) 10/03/2017 12:40 PM CDT Respiratory Rate 16 11/04/2023 1:19 PM CDT Oxygen Saturation 97% 10/03/2017 12:40 PM CDT Inhaled Oxygen Concentration - - Weight 57.6 kg (127 lb) 11/04/2023 1:19 PM CDT Height 162.6 cm (5' 4.02) 11/04/2023 1:19 PM CD T Body Mass Index 21.79 11/04/2023 1:19 PM CDT Plan of Treatment Health Maintenance Due Date Last Done Comments Breast Cancer Screening-Mammogram 1962 Colon Cancer Screening-Colonoscopy 1962 Depression Screening 1962 Hepatitis C Screening 1962 Hepatitis B Screening 1980 Regular Well Visit/Exam 18-64 1980 Pneumococcal vaccine <65 (2 of 2 - PCV) 04/29/2007 04/29/2006 Zoster Vaccine (1 of 2) 2012 Influenza Vaccine (#1) 2025 0, 09/11/2017, 06/28/2016, Additional history exists DTaP/Tdap/Td Vaccine (3 - Td or Tdap) 07/11/2026 07/11/2016, 01/30/2013 Insurance [facility] [employer] [place] Advance Directives For more information, please contact: [phone] * Full Code (Latest Code Status on File) Date Activated Date Inactivated Comments 09/18/2017 8:39 PM Care Teams Chief Compressor Station Engineer Relationship Specialty Start Date End Date Cecil Rodríguez MD [address] [place] [address] PCP - General Family Medicine 11/05/22
--- OUTSIDE RECORDS SUMMARY | 2025-01-01 10:14 | XMS_ITS | Clinical Summary ---
Author Organization [facility] Address [address], [facility] [address] [place] [address] Phone Care Team Providers Care Flare Man Name Role Phone Cecil Rodríguez Primary Care Provider [phone] Allergies Active Allergy Reactions Criticality Noted Date Comments Fluticasone-Salmeterol Hives 10/24/2010 Clopidogrel Hives 08/01/2022 Codeine Hives 08/01/2022 Penicillins Unknown 08/01/2022 Medications apixaban (ELIQUIS) 5 MG Tablet Eliquis 5 mg tablet 1 Active zolpidem (AMBIEN) 10 MG Tablet TAKE 1 TABLET BY MOUTH AT BEDTIME NEEDED 3 Active melatonin 3 MG Tablet Take 10 mg by mouth nightly. Active Ascorbic Acid (VITAMIN C PO) Take 250 mg by mouth. gummies Active cyclopentolate (CYCLOGYL) 1 % Solution 1 Drop. 0 Active ergocalciferol (VITAMIN D) [address]34 UNIT Capsule take one capsule orally once every other week 2 Active ezetimibe (ZETIA) 10 MG Tablet Take by mouth. 8 Active famotidine (PEPCID) 40 MG Tablet Take 1 Tablet by mouth. 1 Active HYDROcodone-dino taminophen (NORCO) 5-325 MG Tablet TAKE 1 TABLET BY MOUTH EVERY 6 HOURS NEEDED FOR PAIN 3 Active naproxen sodium (ANAPROX) 220 MG Tablet Take 220 mg by mouth as needed. Active nitroGLYCERIN (NITROSTAT) 0.4 MG SL Tablet Apply if needed. 3 Active pregabalin (LYRICA) 75 MG Capsule Take 75 mg by mouth 2 times daily. 2 Active rosuvastatin (CRESTOR) 20 MG Tablet 2 Active alendronate (FOSAMAX) 70 MG Tablet alendronate 70 mg tablet Active difluprednate (DUREZOL) 0.05 % Emulsion Durezol 0.05 % eye drops Active dilTIAZem (CARDIZEM CD) 180 MG CAPSULE SR 24 HR 3 Active Active Problems No known active problems Family History Medical History Relation Name Comments Heart Attack Father Alzheimer's Disease Mother Cancer Sister Relation Name Status Comments Brother Alive Father Mother Sister Alive Social History Tobacco Use Types Packs/Day Years Used Date Smoking Tobacco: Every Day Cigarettes Smokeless Tobacco: Never Tobacco Cessation:Ready to Q uit: Not Asked; Counseling Given: Not Answered Alcohol Use Standard Drinks/Week Comments Never 0 (1 standard drink = 0.6 oz pur e alcohol) Comments Unknown Sex and Gender Information Value Date Recorded Sex Assigned at Not on file Legal Sex Female 10:52 AM VEST 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 Gender Identity Not on file Sexual Orientation Not on file Last Filed Vital Signs Vital Sign Reading Time Taken Comments Blood Pressure 108/70 08/08/2022 10:41 AM VEST PRESSER Pulse 76 08/08/2022 10:41 AM VEST PRESSER Temperature 36.9 C (98.4 F) 08/08/2022 10:41 AM VEST PRESSER Respiratory Rate 18 08/08/2022 10:41 AM VEST PRESSER Oxygen Saturation 97% 08/08/2022 10:41 AM VEST PRESSER Inhaled Oxygen Concentration - - Weight 59 kg (130 lb 1.6 oz) 08/08/2022 10:41 AM VEST PRESSER Height 160 cm (5' 3) 08/08/2022 10:41 AM VEST PRESSER Body Mass Index 23.05 08/08/2022 10:41 AM VEST PRESSER Plan of Treatment Health Maintenance Due Date Last Done Comments Hepatitis C Virus (HCV) Screening 1962 Pap Smear 12/24/1983 Cervical Cancer Screening (CCS) 1992 HPV/Cotest 1992 Cologuard 12/24/2007 Colonoscopy 12/24/2007 Colorectal Cancer Screening 12/24/2007 Immunochemical Fecal Occult Blood 12/24/2007 Pneumococcal Immunization (50+ years) (2 of 2 - PCV) 2012 04/29/2006 Zoster Immunization (1 of 2) 2012 SARS-COV-2 Immunization (1 - 2023- season) 2024 Influenza Immunization (#1) 2025 110 07/2021, 03/14/2021, 04/02/2020, Additional history exists Respiratory Syncytial Virus (RSV) Immunization (Adult) (1 - 1-dose 75+ series) 2037 Pneumococcal Immunization Combined Discontinued 04/29/2006 DTaP/Tdap/Td Immunization Discontinued 2016, 01/30/2013, 01/30/2013 TdaP Immunization Completed 07/11/2016, 01/30/2013 Hepatitis B Immunization Aged Out No longer eligible based on patient's age to complete this topic Human Papillomavirus (HPV) Immunization Aged Out No longer eligible based on patient's age to complete this topic Meningococcal Immunization (ACWY) Aged Out No longer eligible based on patient's age to complete this topic Rotavirus Immunization Aged Out No lo nger eligible based on patient's age to complete this topic Insurance [facility] Care Teams Flare Man Relationship Specialty Start Date End Date Cecil Rodríugez [address] [place] [address] PCP - General Family Medicine 07/06/22
--- OUTSIDE RECORDS SUMMARY | 2025-01-01 10:14 | XMS_ITS | Referral Summary ---
Author Organization [facility] Address [address] [place] [address] Care Team Providers Care Millinery Salesperson Name Role Phone Cecil Rodríguez MD Primary Care Provider [phone] Allergies Active Allergy Reactions Criticality Noted Date [...] length - Plan for repeat exam in [facility] on 11/12 AM Assessment & [...] length - Plan for repeat exam in [facility] on 11/04 AM Assessment & [...] Reclast yearly infusion ) Will schedule at [facility] today - Fall precautions - recommend [...] Intramuscular 04/01/2014 Influenza, Trivalent, IM (MDV) 04/24/2012 Social History Tobacco Use Types Packs/Day Years Used Date Smoking Tobacco: Every Day Cigarettes 0.5 40 Alcohol Use Standard Drinks/Week Comments No 0 (1 standard drink = 0.6 oz pur e alcohol) Comments Unknown Sex and Gender Information Value Date Recorded Sex Assigned at Not on file 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
== END 2025-01-01 10:06 | disposition home or self-care (01) ==
PROVIDERS: PCP Emergency Medicine; Visit Provider Internal Medicine Pulmonary Disease
DX: F17.218 Nicotine dependence, cigarettes, with other nicotine-induced disorders (principal)
CPT/HCPCS: 71271